=== PATIENT | male | born 1985 | race Caucasian/White ===

== ENCOUNTER 2018-03-11 13:46 | Emergency (ER) | payer SELFPAY ==
[2018-03-11] MEDS ORDERED: PROPARACAINE HCL OPTH 15ML BTL OPTH ONE (14:24)
--- NOTE | 2018-03-11 14:26 | Emergency Department Record ---
History of Present Illness - General Chief complaint: Eye Problem Stated complaint: LT EYE IRRATATION, BELIEVES IT COULD BE A CHEMICAL Time Seen by Provider: 03/11/18 14:24 Source: Patient Mode of Arrival: Ambulatory Limitations: No limitations - History of Present Illness Initial comments: 32 yo male presents with left eye irritation for a couple days. No pain or loss of vision. He has noted some tearing and crusting. He has some lid swelling as well. No contacts. MD chief complaint: Eye redness Onset/Timin -: Days(s) Onset Description: Sudden Location: Left eye Place: Work If Injury: Chemical exposure, Other Eye Symptoms: Discharge, Itching, Redness, Other Severity scale (1-10): 1 Consistency: Constant Associated Symptoms: None Treatments Prior to Arrival: None - Related Data Visual acuity (L) = 20/: 20 Visual acuity (R) = 20/: 40 With correction: No Hx Tetanus Toxoid Vaccination: Yes Patient Tetanus UTD (within 5 yrs): No Allergies Allergy/AdvReac Type Severity Reaction Status Date / Time No Known Drug Allergies Allergy Verified 11/27/15 22:11 Travel Screening - Travel/Exposure Within Last 30 Days Have you traveled within the last 30 days?: No Review of Systems Constitutional: Denies: Chills, Fever, Malaise, Weakness, Other Eyes: Reports: Eye discharge. Denies: Eye pain, Photophobia, Vision change ENT: Denies: Congestion, Throat pain Respiratory: Denies: Cough, Dyspnea Cardiovascular: Denies: Chest pain, Palpitations, Syncope Endocrine: Denies: Fatigue Gastrointestinal: Denies: Abdominal pain, Diarrhea, Nausea, Vomiting Genitourinary: Denies: Dysuria, Frequency, Hematuria Musculoskeletal: Denies: Arthralgia, Back pain, Myalgia, Neck pain Skin: Denies: Bruising, Change in color, Rash Neurological: Denies: Headache, Numbness, Weakness Psychiatric: Denies: Anxiety Hematological/Lymphatic: Denies: Easy bleeding, Easy bruising Past Medical History - SOCIAL HISTORY Smoking Status: Current every day smoker Alcohol Use: None Drug Use: None - RESPIRATORY Hx Respiratory Disorders: No - CARDIOVASCULAR Hx Cardio Disorders: No - NEURO Hx Neuro Disorders: No - GI Hx GI Disorders: No - Hx Genitourinary Disorders: No - ENDOCRINE Hx Endocrine Disorders: No - MUSCULOSKELETAL Hx Musculoskeletal Disorders: Yes - PSYCH Hx Psych Problems: No - HEMATOLOGY/ONCOLOGY Hx Hematology/Oncology Disorders: No Family Medical History Any Significant Family History?: Yes Family Hx Comment (NOT TO BE USED IN PLACE OF ITEMS BELOW): Mom w/ Crohn's Hx Diabetes: Grandparents Hx HTN: Grandparents Physical Exam - General General Appearance: Alert, Oriented x3, Cooperative, No acute distress Limitations: No limitations - Head Head exam: Atraumatic, Normal inspection - Eye Eye exam: Conjunctival injection, EOMI. negative: Normal appearance, Periorbital tenderness, Scleral icterus Pupils: Normal accommodation With correction: No - ENT ENT exam: Normal exam Ear exam: Normal external inspection Nasal Exam: Normal inspection Mouth exam: Normal external inspection - Neck Neck exam: Normal inspection, Full ROM. negative: Lymphadenopathy, Tenderness - Rectal Rectal exam: Deferred - exam: Deferred - Neurological Neurological exam: Alert, Oriented X3 - Psychiatric Psychiatric exam: Normal affect, Normal mood - Skin Skin exam: Dry, Intact, Normal color, Warm Course Vital Signs 03/11/18 14:12 Temperature 98.5 F Pulse Rate 95 H Respiratory 20 Rate Blood Pressure 182/107 Pulse Ox 94 L - Reevaluation(s) Reevaluation #1: VA is 20/20 in the affected eye 03/11/18 14:26 Disposition Disposition: Discharge Clinical Impression: Conjunctivitis Disposition: Home, Self-Care Condition: (1) Good Instructions: Conjunctivitis (ED) Additional Instructions: Use 2 drops every 4 hours of the eye antibiotic drops This may me contagious so wash your hands frequently Return if worse in the next 2-3 days Forms: Patient Portal Access Time of Disposition: 14:42 Quality - Quality Measures Quality Measures: N/A - Blood Pressure Screening Does Patient Have Any of the Following: No Blood Pressure Classification: Hypertensive Reading Systolic Measurement: 182 Diastolic Measurement: 107 Screening for High Blood Pressure: < Pre-Hypertensive BP, F/U Documented > [ [id number]] Pre-Hypertensive Follow-up Interventions: Referral to alternative/primary care provider.
[2018-03-11] MEDS ORDERED: POLYMYXIN B SULF/TRIMETHOPRIM 10ML BTL OPTH ONE (14:41)
== END 2018-03-11 14:56 | disposition home or self-care (01) ==
LOC: ER 13:46
DX: H10.32 Unspecified acute conjunctivitis, left eye (principal); F17.210 Nicotine dependence, cigarettes, uncomplicated
CPT/HCPCS: 99282

== ENCOUNTER 2018-10-24 20:56 | Emergency (ER) | payer MEDICAID ==
[2018-10-24] MEDS ORDERED: DOXYCYCLINE HYCLATE 100 MG CAPSULE PO ONE (21:19)
--- NOTE | 2018-10-24 21:25 | Emergency Department Record ---
History of Present Illness - General Chief complaint: ENT Stated complaint: EAR PAIN,SORE THOAT Time Seen by Provider: 10/24/18 21:14 Source: Patient Mode of Arrival: Ambulatory Limitations: No limitations - History of Present Illness Initial comments: The patient is here due to a 8 day hx of cough, nasal congestion, ST, and fluid in the ears. He has had some sputum production. The patient does have a hx of HTN also but is not treated. MD complaint: Ear pain, Sore throat, Other Onset/Timin -: Days(s) Location: R ear, L ear, Throat Severity scale (1-10): 5 Consistency: Constant Improves with: None Worsens with: Swallowing Context- Ear: Recent illness Associated Symptoms: Cough, Sore throat - Related Data Previous Rx's Medication Instructions Recorded Doxycycline Monohydrate [Mondoxyne 100 mg PO BID #14 capsule 10/24/18 Nl] Allergies Allergy/AdvReac Type Severity Reaction Status Date / Time No Known Drug Allergies Allergy Verified 11/27/15 22:11 Travel Screening - Travel/Exposure Within Last 30 Days Have you traveled within the last 30 days?: No - Travel Symptoms Symptom Screening: None Review of Systems Constitutional: Reports: Malaise. Denies: Chills, Fever Eyes: Denies: Eye discharge ENT: Reports: Congestion, Throat pain Respiratory: Reports: Cough. Denies: Dyspnea Past Medical History - SOCIAL HISTORY Smoking Status: Current every day smoker Alcohol Use: Rare Drug Use: Rare Drug Use Detail:: Marijuana - RESPIRATORY Hx Respiratory Disorders: No - CARDIOVASCULAR Hx Cardio Disorders: No - NEURO Hx Neuro Disorders: No - GI Hx GI Disorders: No - Hx Genitourinary Disorders: No - ENDOCRINE Hx Endocrine Disorders: No - MUSCULOSKELETAL Hx Musculoskeletal Disorders: Yes - PSYCH Hx Psych Problems: No - HEMATOLOGY/ONCOLOGY Hx Hematology/Oncology Disorders: No Family Medical History Any Significant Family History?: Yes Family Hx Comment (NOT TO BE USED IN PLACE OF ITEMS BELOW): Mom w/ Crohn's Hx Diabetes: Grandparents Hx HTN: Grandparents Physical Exam - General General Appearance: Alert, Oriented x3, Cooperative, No acute distress - Head Head exam: Atraumatic, Normocephalic, Normal inspection - Eye Eye exam: Normal appearance, PERRL, EOMI - ENT ENT exam: negative: TM's normal bilaterally (The L TM is normal but the R TM is blocked with cerumen.) Throat exam: Tonsillar erythema. negative: Normal inspection, Tonsillomegaly, Tonsillar exudate - Neck Neck exam: Normal inspection, Full ROM. negative: Tenderness - Respiratory Respiratory exam: Normal lung sounds bilaterally. negative: Respiratory distress - Cardiovascular Cardiovascular Exam: Regular rate, Normal rhythm, Normal heart sounds - GI/Abdominal GI/Abdominal exam: Soft, Normal bowel sounds. negative: Tenderness - Extremities Extremities exam: Normal inspection, Full ROM, Normal capillary refill. negative: Tenderness Course Vital Signs 10/24/18 21:05 Temperature 98.9 F Pulse Rate 114 H Respiratory 24 Rate Blood Pressure 214/103 Pulse Ox 95 - Reevaluation(s) Reevaluation #1: I did explain to the patient that he clearly has a URI that I would treat with an oral Abx. We will treat him with Doxycycline and have him F/U with a PCP next week. 10/24/18 21:23 Disposition Disposition: Discharge Clinical Impression: URI, acute Sinusitis Qualifiers: Sinusitis location: unspecified location Chronicity: acute Recurrence: not specified as recurrent Qualified Code(s): J01.90 - Acute sinusitis, unspecified Disposition: Home, Self-Care Condition: (2) Stable Instructions: Sinusitis (ED) Additional Instructions: PLease take the Doxycycline as directed and use an antihistamine OTC if needed along with Flonase. Please see a family doctor next week for recheck of your blood pressure. Prescriptions: Doxycycline Monohydrate [Mondoxyne Nl] 100 mg PO BID #14 capsule Time of Disposition: 21:25 Quality - Quality Measures Quality Measures: N/A - Blood Pressure Screening View Details: Yes Does Patient Have Any of the Following: Active Dx of HTN Blood Pressure Classification: Hypertensive Reading Systolic Measurement: 214 Diastolic Measurement: 103 Screening for High Blood Pressure: Patient Exclusion, Hx of HTN [G9744]
== END 2018-10-24 21:35 | disposition home or self-care (01) ==
LOC: ER 20:56
DX: J06.9 Acute upper respiratory infection, unspecified (principal); F17.210 Nicotine dependence, cigarettes, uncomplicated
CPT/HCPCS: 99282

== ENCOUNTER 2019-02-02 14:19 | Observation (INO) | payer MEDICAID ==
--- NOTE | 2019-02-02 14:28 | Emergency Department Record ---
History of Present Illness - General Chief Complaint: Chest Pain Stated Complaint: CHEST PAIN Time Seen by Provider: 02/02/19 14:22 Source: Patient Mode of Arrival: Ambulatory Limitations: No limitations - History of Present Illness Initial Comments: 33 yo male presents with a cough for over a week. The cough is productive but clear. No blood in the sputum. He has nasal and ear congestion with some sore throat. He has chest discomfort with cough and taking deep breaths. He was seen in the [facility] this past week. He was started on Albuterol, Zithromax, and Prednisone. His BP was noted to be elevated as well. He was started on Lisinopril 10mg daily. He noticed when he took his medications he became jittery, shaky, with increased HR. He is new to albuterol. He stopped his medications. He has chronic back pain. He was told he had degenerative changes. No leg pain or leg swelling. He has a new PCP at the [facility]. Joie Ford MD Complaint: Chest pain, Other (Cough) -: Week(s) (2) Pain Location: Substernal (with deep breaths) Severity: Moderate Quality: Aching Improves With: Nothing Worsens With: Other (Coughing) Anginal Symptoms: Dyspnea Other Symptoms: Cough - Related Data Allergies Allergy/AdvReac Type Severity Reaction Status Date / Time No Known Drug Allergies Allergy Verified 02/02/19 14:29 Review of Systems Constitutional: Reports: Chills. Denies: Fever, Malaise, Weakness Eyes: Denies: Eye discharge, Eye pain, Photophobia, Vision change ENT: Reports: Congestion, Ear pain, Throat pain Respiratory: Reports: Cough, Dyspnea, Wheezes Cardiovascular: Denies: Chest pain, Palpitations, Syncope Endocrine: Denies: Fatigue Gastrointestinal: Denies: Abdominal pain, Diarrhea, Nausea, Vomiting Genitourinary: Denies: Dysuria, Frequency, Hematuria Musculoskeletal: Reports: Back pain (chronic). Denies: Myalgia Skin: Denies: Bruising, Change in color, Rash Neurological: Reports: Headache Psychiatric: Denies: Anxiety Hematological/Lymphatic: Denies: Blood Clots, Easy bleeding, Easy bruising Past Medical History - SOCIAL HISTORY Smoking Status: Current every day smoker Drug Use: Rare Drug Use Detail:: Marijuana - RESPIRATORY Hx Respiratory Disorders: No - CARDIOVASCULAR Hx Cardio Disorders: No - NEURO Hx Neuro Disorders: No - GI Hx GI Disorders: No - Hx Genitourinary Disorders: No - ENDOCRINE Hx Endocrine Disorders: No - MUSCULOSKELETAL Hx Musculoskeletal Disorders: Yes - PSYCH Hx Psych Problems: No - HEMATOLOGY/ONCOLOGY Hx Hematology/Oncology Disorders: No Family Medical History Family Hx Comment (NOT TO BE USED IN PLACE OF ITEMS BELOW): Mom w/ Crohn's Hx Diabetes: Grandparents Hx HTN: Grandparents Physical Exam - General General Appearance: Alert, Oriented x3, Cooperative, No acute distress Limitations: No limitations - Head Head exam: Atraumatic, Normal inspection - Eye Eye exam: Normal appearance. negative: Conjunctival injection - ENT ENT exam: Normal exam, Mucous membranes moist Ear exam: Normal external inspection Nasal Exam: Normal inspection Mouth exam: Normal external inspection - Neck Neck exam: Normal inspection. negative: Lymphadenopathy - Respiratory Respiratory exam: Decreased breath sounds, Prolonged expiratory, Rhonchi, Wheezes. negative: Normal lung sounds bilaterally, Accessory muscle use, Respiratory distress - Cardiovascular Cardiovascular Exam: Regular rate, Normal rhythm, Normal heart sounds Peripheral Pulses: 2+: Radial (R), Radial (L) - GI/Abdominal GI/Abdominal exam: Soft. negative: Tenderness - Rectal Rectal exam: Deferred - exam: Deferred - Extremities Extremities exam: Normal inspection. negative: Pedal edema, Tenderness - Back Back exam: Denies: CVA tenderness (R), CVA tenderness (L) - Neurological Neurological exam: Alert, Oriented X3 - Psychiatric Psychiatric exam: Normal affect, Normal mood - Skin Skin exam: Dry, Intact, Normal color, Warm Course - Reevaluation(s) Reevaluation #1: EKG #1: 14:20 Rate: 97 Rhythm: sinus [place]: normal Intervals: normal ST segments: normal Prior none 02/02/19 14:27 02/02/19 15:42 The CBC,CMP were reviewed. The WBC was 16 otherwise no acute process The Troponin is normal The D-Dimer is normal 02/02/19 15:44 The Influenza panel is negative 02/02/19 15:51 The CXR was reviewed. No acute process. Chronic T spine wedge deformities 02/02/19 16:40 The patient continues to wheeze with some decrease his saturations to 88-89% I recommend admission, breathing treatments, steroids, and antibiotics. 02/02/19 Medical Decision Making - Lab Data Result diagrams: 02/02/19 14:32 02/02/19 14:32 Disposition Disposition: Admit Clinical Impression: Bronchitis, Hypertension, Wheezing, Hypoxia Disposition: Still a Patient at [facility] Decision to Admit: Admit from ER Decision to Admit Date: 02/02/19 Decision to Admit Time: 16:41 Condition: (2) Stable Time of Disposition: 16:40 Quality - Quality Measures Quality Measures: N/A - Blood Pressure Screening Does Patient Have Any of the Following: Active Dx of HTN Blood Pressure Classification: Hypertensive Reading Systolic Measurement: 172 Diastolic Measurement: 92 Screening for High Blood Pressure: Patient Exclusion, Hx of HTN [G9744]
[2019-02-02] MEDS ORDERED: METHYLPREDNISOLONE PF 125MG/VIAL IVP ONE (14:56)
[2019-02-02] MEDS ORDERED: IPRATROPIUM/ALBUTEROL (0.5MG/3MG) NEB INH ONE (14:56)
[2019-02-02 15:17] LABS: HEMOGLOBIN 15.4 gm/dl (14.0-18.0); MEAN CELL VOLUME 84.4 fl (81-97); MEAN CORPUSCULAR HEMOGLOBIN 27.6 pg (27-33); MEAN CORPUSCULAR HGB CONC 32.8 g/dl (32-36); PLATELET COUNT 440 K/uL (130-400); RED BLOOD COUNT 5.57 M/uL (4.40-5.70); RED CELL DISTRIBUTION WIDTH 14.1 % (11.5-14.5)
[2019-02-02 15:26] LABS: BLOOD UREA NITROGEN 13 mg/dL (6-20); CREATININE 0.6 mg/dL (0.7-1.2); EST GLOMERULAR FILTRATION RATE > 60 mL/min; TOTAL PROTEIN 8.5 g/dL (6.6-8.7)
[2019-02-02 15:28] LABS: GLUCOSE,RANDOM 185 mg/dL (74-109)
[2019-02-02 15:30] LABS: PARTIAL THROMBOPLASTIN TIME 28.9 SECONDS (24.5-39.1); PROTHROMBIN TIME (PATIENT) 10.1 SECONDS (9.5-12.1)
[2019-02-02 15:31] LABS: ALB/GLOB RATIO 1.1 (1.1-1.8); ALBUMIN 4.4 g/dL (4.0-5.0); ALKALINE PHOSPHATASE 95 U/L (40-129); ALT/SGPT 23 U/L (<41); AST/SGOT 18 U/L (10.0-50.0)
[2019-02-02 15:37] LABS: INFLUENZA A NEGATIVE (NEGATIVE); INFLUENZA B NEGATIVE (NEGATIVE)
[2019-02-02] MEDS ORDERED: LISINOPRIL 10 MG TABLET PO ONE (16:05)
[2019-02-02] MEDS ORDERED: ALBUTEROL SULFATE 0.5% 5 MG/ML BTL 20ML INH SCH (16:45)
[2019-02-02] MEDS ORDERED: LISINOPRIL 20 MG TABLET PO SCH (18:44)
[2019-02-02] MEDS ORDERED: AZITHROMYCIN 250 MG TABLET PO SCH (18:44)
[2019-02-02] MEDS ORDERED: ALBUTEROL SULFATE (0.083%) 2.5 MG/3 ML NEB INH PRN (18:44)
[2019-02-02] MEDS ORDERED: ACETAMINOPHEN 325 MG TAB PO PRN (18:44)
[2019-02-02] MEDS: IPRATROPIUM/ALBUTEROL (0.5MG/3MG) NEB INH SCH ×2 (19:17→21:31)
[2019-02-02] MEDS: PANTOPRAZOLE SODIUM IV 40 MG VIAL IVP SCH (22:30)
[2019-02-03] MEDS: IPRATROPIUM/ALBUTEROL (0.5MG/3MG) NEB INH SCH ×3 (05:25→14:25)
[2019-02-03 05:48] LABS: HEMATOCRIT 44.6 % (42.0-52.0); HEMOGLOBIN 14.9 gm/dl (14.0-18.0); MEAN CELL VOLUME 84.2 fl (81-97); MEAN CORPUSCULAR HEMOGLOBIN 28.1 pg (27-33); MEAN CORPUSCULAR HGB CONC 33.4 g/dl (32-36); MEAN PLATELET VOLUME 8.7 fl (7.4-10.4); PLATELET COUNT 411 K/uL (130-400); RED CELL DISTRIBUTION WIDTH 13.9 % (11.5-14.5); WHITE BLOOD COUNT W/O DIFF 17.6 K/uL (4.2-12.2)
[2019-02-03] MEDS ORDERED: METHYLPREDNISOLONE PF 125MG/VIAL IVP SCH (10:00)
[2019-02-03] MEDS: PANTOPRAZOLE SODIUM IV 40 MG VIAL IVP SCH (10:55)
--- NOTE | 2019-02-03 15:52 | Discharge Summary ---
Providers Discharge Summary Date: 02/03/19 Date of admission: 02/02/19 18:02 Attending physician: JESSY QUESADA Primary care physician: Joie Brooks N.P. Physical Exam - Vital Signs Vital Signs: Vital Signs - Last 24 Hrs Temp Pulse Pulse Pulse Resp BP Pulse Ox 02/03/19 12:00 97.7 F 72 18 148/83 98 02/03/19 09:00 97.4 F L 86 18 157/77 96 02/03/19 06:00 97.7 F 77 18 162/74 97 02/03/19 05:26 87 18 94 L 02/02/19 22:30 98.3 F 109 H 18 163/83 93 L 02/02/19 21:36 105 H 18 94 L 02/02/19 18:10 97.4 F L 20 151/78 98 02/02/19 17:23 93 H 17 132/78 95 02/02/19 16:49 84 20 98 02/02/19 16:10 92 H 16 153/95 94 L - General General Appearance: Alert, Oriented x3, Cooperative, No acute distress Limitations: No limitations - Head Head exam: Atraumatic, Normal inspection - Eye Eye exam: Normal appearance. negative: Conjunctival injection - ENT ENT exam: Normal exam, Mucous membranes moist Ear exam: Normal external inspection Nasal Exam: Normal inspection Mouth exam: Normal external inspection - Neck Neck exam: Normal inspection. negative: Lymphadenopathy - Respiratory Respiratory exam: Decreased breath sounds, Prolonged expiratory, Rhonchi, Wheezes. negative: Normal lung sounds bilaterally, Accessory muscle use, Respiratory distress - Cardiovascular Cardiovascular Exam: Regular rate, Normal rhythm, Normal heart sounds Peripheral Pulses: 2+: Radial (R), Radial (L) - GI/Abdominal GI/Abdominal exam: Soft. negative: Tenderness - Rectal Rectal exam: Deferred - exam: Deferred - Extremities Extremities exam: Normal inspection. negative: Pedal edema, Tenderness - Back Back exam: Denies: CVA tenderness (R), CVA tenderness (L) - Neurological Neurological exam: Alert, Oriented X3 - Psychiatric Psychiatric exam: Normal affect, Normal mood - Skin Skin exam: Dry, Intact, Normal color, Warm Hospitalization - Hospitalization Admission Diagnosis: Bronchitis, COPD, Hypoxia, Hypertension, Atypical Chest pain - Problem List/Discharge Diagnosis (1) Wheezing Status: Acute Base Code: R06.2 - WHEEZING Comment: 02/03/19 -Recommended to continue Albuterol inhaler NEEDED -Does not like the feeling Prednisone gives, advised to cut dose that was prescribed in [facility] [place] in half but that he could also not take it and see how he feels. (2) Hypoxia Status: Acute Base Code: R09.02 - HYPOXEMIA Comment: 02/03/19 -SpO2 98% on RA -Continue Azithromycin dailyx 2 more doses at home -Albuterol inhaler as needed (3) DVT prophylaxis Status: Acute Base Code: [id number] - Comment: 02/03/19 -Low risk -Nursing to encourage ambulation (4) Full code status Status: Acute Base Code: Z78.9 - OTHER SPECIFIED HEALTH STATUS Comment: 02/03 -Full code this admission - Hospitalization Course Disposition: Home, Self-Care Hospital Course: Darvin Morales is a 33 y.o. M who presented to the ED with c/o cough x more than 1 week and feeling that there was a "bubble" in the middle of his chest. Was started on Albuterol, Zithromax and Prednisone earlier in the week [facility] His BP was elevated at that time and he was also started on Lisinopril and will be followed by Joie Brooks in the [facility] clinic. Reports that he started the antibiotic on Monday 01/29 and then took a dose of antibiotic and prednisone on Tuesday 01/30 and felt very jittery and shaky so he stopped taking it. He then reported to the ED when the "bubble" in his chest, causing significant pain, would not go away. On arrival to ED, has SpO2 of 88% on RA. Reports PMHx of IBS and GERD for which he takes Ranitidine PRN. ED Course EKG: NSR, HR 97, ST segments normal Labs: WBC 16 (has been on prednisone), normal Troponin and D-dimer, Influenza panel Neg CXR: No acute process, Chronic T spine wedge deformities 02/03/19 1600 Sitting up in bed, alert and cooperative. Can easily converse without getting winded. Denies having an KARLENE or Chest discomfort. States that he is ready to go home. Would like to avoid taking steroids if able d/t the way they make him feel. States that he has a f/u with new PCP Joie Brooks this week for BP check. Reports that Dr. Branch (in ED) did advise him of the Chronic Thoracic spine changes. Says that was the first time there has ever been imagining of his back of any sort. Procedures: Imaging and X-Rays 02/02/19 14:48 CHEST 2 VIEWS [RAD] Stat Cardiology Procedures 02/02/19 14:22 EKG NOW 02/02/19 14:48 [employer] Product Consult[employer] NOW 02/02/19 18:44 [employer] Product Consultant .Continuous Abnormal Labs: Abnormal Lab Results 02/02/19 02/02/19 02/03/19 Range/Units 14:32 14:32 05:40 WBC 16.0 H 17.6 H (4.2-12.2) K/uL Plt Count 440 H 411 H (130-400) K/uL Creatinine 0.6 L (0.7-1.2) mg/dL Random Glucose 185 H (74-109) mg/dL Condition at Discharge: (2) Stable Discharge Medications - Discharge Medications Home Medications: Ambulatory Orders Acetaminophen [Tylenol 325Mg] 650 mg PO Q6H PRN tablet 02/03/19 [Last Taken Unknown] Discharge Plan - Discharge Instructions Activity at Discharge: Resume Usual Activities As Tolerated Diet at Discharge: Advance to Usual Diet Instructions: Acute Bronchitis (GEN), Reactive Airways Disease (DC), Hypertension (DC), Hypoxia (GEN) Additional Instructions: Call your doctor for the next available follow up appointment Return to the ER for a recheck if worse, any new concerns or questions Review this ER visit and the tests performed with your family doctor Take Azithromycin 250mg daily x 2 more days (use the prescription that you have at home) Can stop Prednisone due to the side effects, may restart at 20mg daily if you find that you need it. Use the Albuterol inhaler as needed for Difficulty breathing and wheezing, this can make your heart feel like it is racing. Quality Measures - Quality Measures Quality Measures: Documentation of Current Medications in Medical Record, Screening for High Blood Pressure and F/U Documented - Current Medications Quality Measure: Measure #130: Documentation of Current Medications Documentation of Current Medications: <Current Medications Documented/Reviewed> [G8427] - Blood Pressure Screening Quality Measure: Screening for High Blood Pressure and Follow-Up Documented Does Patient Have Any of the Following: Active Dx of HTN Blood Pressure Classification: Hypertensive Reading Systolic Measurement: 172 Diastolic Measurement: 92 Screening for High Blood Pressure: Patient Exclusion, Hx of HTN [G9744] - Elder Abuse Suspicion Index EASI Reference Information: Mame SHARP, Sandee Cerna, Delfino Guillory, Laura Torres.Development and validation of a tool to assist physicians identification of elder abuse: The Elder Abuse Suspicion Index (EASI ). Journal of Elder Abuse and Neglect, 2008; 20 (3): 276-300.
--- NOTE | 2019-02-03 15:52 | History & Physical ---
History of Present Illness - Date of Service Date of Service for History & Physical: 02/03/19 - History of Present Illness Admitting Diagnosis: Bronchitis, COPD, Hypoxia, Hypertension, Atypical Chest pain History of Present Illness: Darvin Morales is a 33 y.o. M who presented to the ED with c/o cough x more than 1 week and feeling that there was a "bubble" in the middle of his chest. Was started on Albuterol, Zithromax and Prednisone earlier in the week after being seen in [facility]. His BP was elevated at that time and he was also started on Lisinopril and will be followed by Joie Brooks in the [facility] clinic. Reports that he started the antibiotic on Monday 01/29 and then took a dose of antibiotic and prednisone on Tuesday 01/30 and felt very jittery and shaky so he stopped taking it. He then reported to the ED when the "bubble" in his chest, causing significant pain, would not go away. On arrival to ED, has SpO2 of 88% on RA. Reports PMHx of IBS and GERD for which he takes Ranitidine PRN. ED Course EKG: NSR, HR 97, ST segments normal Labs: WBC 16 (has been on prednisone), normal Troponin and D-dimer, Influenza panel Neg CXR: No acute process, Chronic T spine wedge deformities 02/03/19 1600 Sitting up in bed, alert and cooperative. Can easily converse without getting winded. Denies having an KARLENE or Chest discomfort. States that he is ready to go home. Would like to avoid taking steroids if able d/t the way they make him feel. States that he has a f/u with new PCP Joie Brooks this week for BP check. Reports that Dr. Branch (in ED) did advise him of the Chronic Thoracic spine changes. Says that was the first time there has ever been imagining of his back of any sort. Travel Screening - Travel/Exposure Within Last 30 Days Have you traveled within the last 30 days?: No - Travel/Exposure Within Last Year Have you traveled outside the [place] in the last year?: No - Additonal Travel Details Have you been exposed to anyone with a communicable illness?: Yes Exposure Details:: respiratory issues - Travel Symptoms Symptom Screening: Headache, Weakness, Diarrhea, Lack of Appetite Review of Systems Reviewed: No additional complaints except as noted below Constitutional: Denies: Fever, Malaise, Weakness Eyes: Denies: Eye discharge, Eye pain, Photophobia, Vision change Respiratory: Reports: Cough Cardiovascular: Denies: Chest pain, Palpitations, Syncope Endocrine: Denies: Fatigue Gastrointestinal: Denies: Abdominal pain, Diarrhea, Nausea, Vomiting Genitourinary: Denies: Dysuria, Frequency, Hematuria Musculoskeletal: Reports: Back pain (chronic). Denies: Myalgia Skin: Denies: Bruising, Change in color, Rash Neurological: Reports: Headache Psychiatric: Denies: Anxiety Hematological/Lymphatic: Denies: Blood Clots, Easy bleeding, Easy bruising Past Medical History - SOCIAL HISTORY Smoking Status: Current every day smoker Drug Use: Rare Drug Use Detail:: Marijuana - RESPIRATORY Hx Respiratory Disorders: No - CARDIOVASCULAR Hx Cardio Disorders: No - NEURO Hx Neuro Disorders: No - GI Hx GI Disorders: No - Hx Genitourinary Disorders: No - ENDOCRINE Hx Endocrine Disorders: No - MUSCULOSKELETAL Hx Musculoskeletal Disorders: Yes - PSYCH Hx Psych Problems: No - HEMATOLOGY/ONCOLOGY Hx Hematology/Oncology Disorders: No Family Medical History Family Hx Comment (NOT TO BE USED IN PLACE OF ITEMS BELOW): Mom w/ Crohn's Hx Diabetes: Grandparents Hx HTN: Grandparents H&P Meds/Allergies - Allergies Allergies: Allergies Allergy/AdvReac Type Severity Reaction Status Date / Time No Known Drug Allergies Allergy Verified 02/02/19 14:29 - Home Medications Previous Rx's Medication Instructions Recorded Acetaminophen [Tylenol 325Mg] 650 mg PO Q6H PRN tablet 02/03/19 - Active Medications Active Medications: Current Medications Acetaminophen (Tylenol 325mg) 650 mg PO Q6H PRN PRN Reason: PAIN - MILD(1-4)/FEVER Albuterol Sulfate () 2.5 mg INH CONT [facility] Last Admin: 02/02/19 16:48 Dose: 2.5 mg Albuterol Sulfate (Albuterol Sulfate) 2.5 mg INH RESP.Q4H PRN PRN Reason: DIFFICULTY IN BREATHING Albuterol/Ipratropium (Duoneb) 3 ml INH RESP.Q4H.WA [facility] Last Admin: 02/03/19 14:25 Dose: Not Given Azithromycin (Zithromax) 250 mg PO QD [facility] Last Admin: 03/23/19 22:27 Dose: 250 mg Lisinopril (Zestril) 20 mg PO QD [facility] Last Admin: 02/02/19 22:24 Dose: Not Given Methylprednisolone Sodium Succinate (Solu-Medrol) 125 mg IVP DAILY [facility] Last Admin: 02/03/19 10:34 Dose: 125 mg Pantoprazole Sodium (Protonix Iv) 40 mg IVP BIDIV [facility] Last Admin: 02/03/19 10:55 Dose: 40 mg Physical Exam - Vital Signs Vital Signs: Vital Signs - Last 24 Hrs Temp Pulse Pulse Pulse Resp BP Pulse Ox 02/03/19 12:00 97.7 F 72 18 148/83 98 02/03/19 09:00 97.4 F L 86 18 157/77 96 02/03/19 06:00 97.7 F 77 18 162/74 97 02/03/19 05:26 87 18 94 L 02/02/19 22:30 98.3 F 109 H 18 163/83 93 L 02/02/19 21:36 105 H 18 94 L 02/02/19 18:10 97.4 F L 20 151/78 98 02/02/19 17:23 93 H 17 132/78 95 02/02/19 16:49 84 20 98 02/02/19 16:10 92 H 16 153/95 94 L - General General Appearance: Alert, Oriented x3, Cooperative, No acute distress Limitations: No limitations - Head Head exam: Atraumatic, Normal inspection - Eye Eye exam: Normal appearance. negative: Conjunctival injection - ENT ENT exam: Normal exam, Mucous membranes moist Ear exam: Normal external inspection Nasal Exam: Normal inspection Mouth exam: Normal external inspection - Neck Neck exam: Normal inspection. negative: Lymphadenopathy - Respiratory Respiratory exam: Decreased breath sounds. negative: Normal lung sounds bilaterally, Accessory muscle use, Respiratory distress - Cardiovascular Cardiovascular Exam: Regular rate, Normal rhythm, Normal heart sounds Peripheral Pulses: 2+: Radial (R), Radial (L) - GI/Abdominal GI/Abdominal exam: Soft. negative: Tenderness - Rectal Rectal exam: Deferred - exam: Deferred - Extremities Extremities exam: Normal inspection. negative: Pedal edema, Tenderness - Back Back exam: Denies: CVA tenderness (R), CVA tenderness (L) - Neurological Neurological exam: Alert, Oriented X3 - Psychiatric Psychiatric exam: Normal affect, Normal mood - Skin Skin exam: Dry, Intact, Normal color, Warm Results - Labs Result Diagrams: 02/03/19 05:40 02/02/19 14:32 Labs Last 24 Hours: Laboratory Results - last 24 hr 02/02/19 02/03/19 20:30 05:40 WBC 17.6 H RBC 5.30 Hgb 14.9 Hct 44.6 MCV 84.2 MCH 28.1 MCHC 33.4 RDW 13.9 Plt Count 411 H MPV 8.7 Neutrophils % 76.0 Band Neutrophils % 0.0 Eosinophils % Not Reportable Basophils % Not Reportable Lymphocytes 21.0 Monocytes 3.0 Basophils 0.0 Metamyelocytes Cancelled Myelocytes Cancelled Promyelocytes Cancelled Nucleated RBCs Cancelled Differential Comment Cancelled Hypersegmented Polys Cancelled Plasma Cells Cancelled Other Cell Type Cancelled Toxic Granulation Cancelled Dohle Bodies Cancelled Aniyah Rods Cancelled Platelet Estimate Cancelled RBC Morphology Cancelled Polychromasia Cancelled Hypochromasia Cancelled Poikilocytosis Cancelled Basophilic Stippling Cancelled Anisocytosis Cancelled Microcytosis Cancelled Macrocytosis Cancelled Spherocytes Cancelled Sickle Cells Cancelled Target Cells Cancelled Tear Drop Cells Cancelled Ovalocytes Cancelled Stomatocytes Cancelled Helmet Cells Cancelled [place] Bodies Cancelled Manor Rings Cancelled Allan Cells Cancelled Acanthocytes (Spur) Cancelled Rouleaux Cancelled Schistocytes Cancelled Morphology Comment Cancelled Eosinophil Count 0.0 Troponin T < 0.010 VTE H&P Assessment - Risk for VTE Risk for VTE: Yes Risk Level: Low Risk Assessment Date: 02/03/19 Risk Assessment Time: 16:00 VTE Orders Placed or Will Be Placed: Yes Plan - Detailed Diagnosis and Plan (1) Wheezing Status: Acute Base Code: R06.2 - WHEEZING Comment: 02/03/19 -Start Albuterol nebs and Duonebs per RT -Solumedrol 125mg IV daily (2) Hypoxia Status: Acute Base Code: R09.02 - HYPOXEMIA Comment: 02/03/19 -Continue Azithromycin (was started in [facility] on 01/29/19) -IV Solumedrol 125mg daily -Duonebs and Albuterol nebs via RT -O2 per NC to keep sats above 92% (3) Full code status Status: Acute Base Code: Z78.9 - OTHER SPECIFIED HEALTH STATUS Comment: 02/03 -Full code this admission (4) DVT prophylaxis Status: Acute Base Code: [id number] - Comment: 02/03/19 -Low risk -Nursing to encourage ambulation
--- NOTE | 2019-02-04 07:59 | RADIOLOGY REPORT ---
EXAM: CHEST, TWO VIEWS HISTORY: DIFFICULTY IN BREATHING. CHEST PAIN, COUGH. TECHNIQUE: Upright PA and lateral views of the chest were obtained. Comparison: None. FINDINGS: The heart is not grossly enlarged. No pulmonary venous hypertension is seen. The lung volumes are low. No confluent air space opacity is seen nor is there costophrenic angle blunting or pneumothorax. Mild anterior wedge deformities of several lower thoracic vertebral bodies are identified, likely chronic. There is associated accentuation of the normal thoracic kyphosis. IMPRESSION: 1. LOW LUNG VOLUMES. NO CONVINCING EVIDENCE OF ACUTE CARDIOPULMONARY DISEASE. 2. MILD ANTERIOR WEDGE DEFORMITY OF SEVERAL CONTIGUOUS LOWER THORACIC VERTEBRAL BODIES, LIKELY CHRONIC. JOB NUMBER: [id number] MTDD
== END 2019-02-03 17:00 | disposition home or self-care (01) ==
LOC: ER 14:19 → MEDSURG 18:02
PROVIDERS: ADMIT Internal Medicine; ATTEND Internal Medicine
DX: R06.2 Wheezing (principal); J40 Bronchitis, not specified as acute or chronic; R05 Cough; J44.9 Chronic obstructive pulmonary disease, unspecified; R09.02 Hypoxemia; I10 Essential (primary) hypertension; K58.9 Irritable bowel syndrome, unspecified; K21.9 Gastro-esophageal reflux disease without esophagitis; F17.210 Nicotine dependence, cigarettes, uncomplicated; F12.90 Cannabis use, unspecified, uncomplicated
CPT/HCPCS: 99285 ×2; 96374; 85730; 85610; 80053; 87400; 84484; 85379; 85027 ×2; 71046; 94640 ×3; 94664; 93005; 93010; 94760; G0378 ×2; J3490; 99220; C9113; J2930

== ENCOUNTER 2019-06-18 17:37 | Emergency (ER) | payer MEDICAID ==
--- NOTE | 2019-06-18 18:42 | Emergency Department Record ---
History of Present Illness - General Chief Complaint: Hypertension Stated Complaint: light headed,weak,high blood pressure Time Seen by Provider: 06/18/19 18:26 Source: Patient Mode of Arrival: Ambulatory Limitations: No limitations - History of Present Illness Initial Comments: 33 yo male with a past medical history significant for NIDDM, HTN presents to ED for evaluation of elevated blood pressure despite recent weight loss and fatigue. Patient was seen in [facility] yesterday for similar symptoms, unknown cause. Patient denies fevers, chills, cough, chest pain, abdominal pain, or recent illness. Patient denies focal weakness on examination, denies urinary symptoms. Patient reports accu check at home yesterday was 92, last HGA1C was 6.2. MD Complaint: Other (Fatigue) Onset/Timin -: Days(s) Timing: Gradual onset Description: Lightheadedness History of Same: Yes History of Trauma: No Improves With: Nothing Worsens With: Nothing Associated Symptoms: Weakness - [place] Coma Scale Eye Response: (4) Open spontaneously Motor Response: (6) Obeys commands Verbal Response: (5) Oriented [place] Total: 15 - Related Data Previous Rx's Medication Instructions Recorded Acetaminophen [Tylenol 325Mg] 650 mg PO Q6H PRN tablet 02/03/19 Allergies Allergy/AdvReac Type Severity Reaction Status Date / Time No Known Drug Allergies Allergy Verified 06/18/19 18:42 Travel Screening - Travel/Exposure Within Last 30 Days Have you traveled within the last 30 days?: No Review of Systems Constitutional: Denies: Chills, Fever, Malaise, Night sweats Eyes: Denies: Eye discharge, Eye pain ENT: Denies: Congestion, Ear pain, Epistaxis Respiratory: Denies: Cough, Dyspnea Cardiovascular: Denies: Chest pain, Dyspnea on exertion Endocrine: Reports: Fatigue. Denies: Heat or cold intolerance Gastrointestinal: Denies: Abdominal pain, Nausea, Vomiting Genitourinary: Denies: Incontinence, Retention Musculoskeletal: Denies: Arthralgia, Back pain Skin: Denies: Bruising, Change in color Neurological: Denies: Abnormal gait, Confusion, Headache, Numbness, Paresthesias, Tingling, Tremors Psychiatric: Denies: Anxiety Hematological/Lymphatic: Denies: Anemia, Blood Clots Past Medical History - SOCIAL HISTORY Smoking Status: Current every day smoker Alcohol Use: None Drug Use: None - RESPIRATORY Hx Respiratory Disorders: No - CARDIOVASCULAR Hx Cardio Disorders: Yes Hx Hypertension: Yes - NEURO Hx Neuro Disorders: No - GI Hx GI Disorders: No - Hx Genitourinary Disorders: No - ENDOCRINE Hx Endocrine Disorders: No - MUSCULOSKELETAL Hx Musculoskeletal Disorders: Yes - PSYCH Hx Psych Problems: No - HEMATOLOGY/ONCOLOGY Hx Hematology/Oncology Disorders: No Family Medical History Any Significant Family History?: Yes Family Hx Comment (NOT TO BE USED IN PLACE OF ITEMS BELOW): Mom w/ Crohn's Hx Diabetes: Grandparents Hx HTN: Grandparents Physical Exam - General General Appearance: Alert, Oriented x3, Cooperative, No acute distress, Anxious Limitations: No limitations - Head Head exam: Atraumatic, Normocephalic, Normal inspection Head exam detail: negative: Abrasion, Contusion, Luna's sign, General tenderness, Hematoma, Laceration - Eye Eye exam: Normal appearance. negative: Conjunctival injection, Periorbital swelling, Periorbital tenderness, Scleral icterus - ENT Ear exam: negative: Auricular hematoma, Auricular trauma Nasal Exam: negative: Active bleeding, Discharge, Dried blood, Foreign body Mouth exam: negative: Drooling, Laceration, Muffled voice, Tongue elevation - Neck Neck exam: Normal inspection. negative: Meningismus, Tenderness - Respiratory Respiratory exam: Normal lung sounds bilaterally. negative: Respiratory distress, Rhonchi, Stridor, Wheezes - Cardiovascular Cardiovascular Exam: Regular rate, Normal rhythm, Normal heart sounds - GI/Abdominal GI/Abdominal exam: Soft. negative: Distended, Rebound, Rigid, Tenderness - Rectal Rectal exam: Deferred - exam: Deferred - Extremities Extremities exam: Normal inspection. negative: Pedal edema, Tenderness - Back Back exam: Denies: CVA tenderness (R), CVA tenderness (L) - Neurological Neurological exam: Alert, Normal gait, Oriented X3 - Psychiatric Psychiatric exam: Anxious - Skin Skin exam: Normal color. negative: Abrasion Type of lesion: negative: abrasion Course Vital Signs 06/18/19 18:39 Temperature 98.3 F Pulse Rate 88 Respiratory 20 Rate Blood Pressure 152/109 Pulse Ox 98 - Reevaluation(s) Reevaluation #1: 06/18/19 18:42 EKG: NST 80 Normal axis, normal intervals No acute ST-T wave changes Reevaluation #2: 06/18/19 19:24 Laboraotry studies were reviewed and appear grossly unremarkable for an acute process except for the following: WBC 14.1, previous labs reviewed and WBC is elevated previously as well. Will obtain UA and CXR to evaluate for possible infection resulting in fatigue symptoms. Reevaluation #3: 06/18/19 20:40 Message left for Jeane Gaitan (patient's PCP) to return call for disposition. Reevaluation #4: 06/18/19 21:47 Following discussion with the patient regarding admission for observation, patient has declined stating that he would prefer to go home at this time as he cares for his 1 yo. Patient is due for his BP medication in 20 minutes, likely elevated due to waning of medication effectiveness. Patient was instructed to call in AM for further recommendations re: blood pressure medication. Patient's BP reading 140's/100's does not necessitate emergent lowering here in the ED. Patient appears stable for discharge at this time. Medical Decision Making - Lab Data Result diagrams: 06/18/19 18:51 06/18/19 18:51 Disposition Disposition: Discharge Clinical Impression: Hypertension Qualifiers: Hypertension type: unspecified Qualified Code(s): I10 - Essential (primary) hypertension Fatigue Qualifiers: Fatigue type: unspecified Qualified Code(s): R53.83 - Other fatigue Disposition: Home, Self-Care Condition: (2) Stable Instructions: Hypertension (ED) Additional Instructions: Return to ED if your symptoms worsen or if you have any concerns. Continue your blood pressure medication as prescribed. Call Jeane's office tomorrow morning for further recommendations regarding your elevated blood pressure. Forms: Patient Portal Access Time of Disposition: 21:46 Quality - Quality Measures Quality Measures: N/A - Blood Pressure Screening Does Patient Have Any of the Following: Active Dx of HTN Blood Pressure Classification: Hypertensive Reading Systolic Measurement: 152 Diastolic Measurement: 109 Screening for High Blood Pressure: Patient Exclusion, Hx of HTN [[id number]]
[2019-06-18 19:00] LABS: ABSOLUTE NEUTROPHIL COUNT 9.07; BASO % 0.2 % (0-6); EOS % 1.2 % (0-6); GRAN % 63.4 % (47-80); HEMATOCRIT 42.6 % (42.0-52.0); HEMOGLOBIN 13.9 gm/dl (14.0-18.0); LYMPH % 29.2 % (16-45); MEAN CELL VOLUME 83.7 fl (81-97); MEAN CORPUSCULAR HEMOGLOBIN 27.3 pg (27-33); MEAN CORPUSCULAR HGB CONC 32.6 g/dl (32-36); MEAN PLATELET VOLUME 8.9 fl (7.4-10.4); PLATELET COUNT 357 K/uL (130-400); RED BLOOD COUNT 5.09 M/uL (4.40-5.70); RED CELL DISTRIBUTION WIDTH 14.2 % (11.5-14.5); WHITE BLOOD COUNT W/O DIFF 14.3 K/uL (4.2-12.2)
[2019-06-18] MEDS ORDERED: 0.9 % SODIUM CHLORIDE 1000ML 1,000 ML IV SCH (19:00)
[2019-06-18 19:14] LABS: BLOOD UREA NITROGEN 14 mg/dL (6-20); CREATININE 0.7 mg/dL (0.7-1.2); EST GLOMERULAR FILTRATION RATE > 60 mL/min
[2019-06-18 19:15] LABS: TOTAL PROTEIN 8.1 g/dL (6.6-8.7)
[2019-06-18 19:16] LABS: GLUCOSE,RANDOM 93 mg/dL (74-109)
[2019-06-18 19:19] LABS: ALB/GLOB RATIO 1.3 (1.1-1.8); ALBUMIN 4.6 g/dL (4.0-5.0); ALKALINE PHOSPHATASE 110 U/L (40-129); ALT/SGPT 20 U/L (<41); AST/SGOT 12 U/L (10.0-50.0)
[2019-06-18 19:29] LABS: ANISOCYTOSIS 1+; PLATELET ESTIMATE NORMAL (NORMAL)
[2019-06-18 20:14] LABS: URINE APPEARANCE CLEAR; URINE BILIRUBIN NEGATIVE (NEGATIVE); URINE BLOOD MODERATE (NEGATIVE); URINE COLOR YELLOW; URINE GLUCOSE (UA) NEGATIVE (NEGATIVE); URINE KETONE NEGATIVE (NEGATIVE); URINE LEUKOCYTE ESTERASE NEGATIVE (NEGATIVE); URINE NITRITE NEGATIVE (NEGATIVE); URINE PROTEIN TRACE (NEGATIVE); URINE UROBILINOGEN 0.2 E.U./dL (0.20 - 1.00)
[2019-06-18 20:27] LABS: URINE BACTERIA NONE SEEN; URINE EPITHELIAL CELLS 0 - 2 (FEW); URINE WBC 0 - 2 (0-2/hpf)
--- NOTE | 2019-06-19 20:05 | RADIOLOGY REPORT ---
EXAM: CHEST 2 VIEWS HISTORY: FATIGUE. ELEVATED WHITE BLOOD CELL COUNT. TECHNIQUE: PA and lateral upright views of the chest were obtained. COMPARISON: 02/02/2019. FINDINGS: The heart, mediastinum, and pulmonary vasculature are normal. There are no acute infiltrates or effusion. There is no pneumothorax. Stable degenerative changes are present within the thoracolumbar spine. There are no acute osseous abnormalities. IMPRESSION: STABLE CHEST WITH NO ACUTE PROCESS IDENTIFIED. JOB NUMBER: [id number] MTDD
== END 2019-06-18 21:57 | disposition home or self-care (01) ==
LOC: ER 17:37
DX: I10 Essential (primary) hypertension (principal); R42 Dizziness and giddiness; D72.829 Elevated white blood cell count, unspecified; R53.1 Weakness; R53.83 Other fatigue; E11.9 Type 2 diabetes mellitus without complications; F17.210 Nicotine dependence, cigarettes, uncomplicated
CPT/HCPCS: 71046; 80053; 81001; 85027; 93005; 93010; 96360; 96361; 99284; J7030